=== PATIENT | female | born 1990 | race Caucasian/White ===

== ENCOUNTER 2018-10-19 13:06 | Emergency (ER) | payer OTHER ==
[~2018-10-19] VITALS: Ht 165.1 cm; Wt 68.7 kg
[2018-10-19 13:14] VITALS: Ht 165.1 cm; Wt 68.7 kg
--- NOTE | 2018-10-19 13:53 | ERD ---
ER Documentation Chief Complaint Chief Complaint sent by pmd , feeling depressed and having suicidal thoughts HPI 28-year-old female with a history of depression sent by her primary care doctor for evaluation of suicidal thoughts and worsening depression. Patient has had depression her whole life. She has been off of medications for quite some time. Recently about 1 month ago, she started having problems with her partner in the relationship. Her symptoms severely worsened at this time. She went to her primary care doctor 2 weeks ago and was prescribed Zoloft and Xanax. However she feels that her symptoms have worsened despite the medications. She is having suicidal thoughts since yesterday, feeling that she does not want to be here and thinking of ways that she could hurt herself. She has been very open about her symptoms with her father who is at the bedside at this time. She has poor appetite, is unable to sleep, and is crying almost 24 hours/day according to her dad.. ROS All systems reviewed and are negative except as per history of present illness. Medications Home Meds Reported Medications Sertraline Hcl* (Sertraline Hcl*) 50 Mg Tablet, 50 MG PO DAILY, #30 TAB 10/19/18 Alprazolam* (Alprazolam*) 0.5 Mg Tablet, 0.5 MG PO QHS PRN for ANXIETY, TAB 10/19/18 Allergies Allergies: Coded Allergies: No Known Allergy (Unverified , 10/19/18) PMhx/Soc History of Surgery: No Hx Neurological Disorder: Yes (Encephalitis) Hx Psychiatric Problems: Yes (Depression) Hx Alcohol Use: No Hx Substance Use: No Hx Tobacco Use: No FmHx Extensive psychiatric history, anxiety Family History: No diabetes Physical Exam Vitals Vital Signs Date Temp Pulse Resp B/P (MAP) Pulse Ox O2 O2 Flow FiO2 Time Delivery Rate 10/19/18 98.0 88 18 128/79 98 Room Air 14:01 (95) 10/19/18 98.3 83 18 135/84 98 13:14 (101) Physical Exam INITIAL VITAL SIGNS: Reviewed by me GENERAL: Well appearing, non toxic, speaking in full sentences. HEENT: Atraumatic, Moist mucous membranes NECK: Supple. RESPIRATORY: No respiratory distress. EXTREMITIES: No clubbing or cyanosis. No edema SKIN: Warm, dry. NEUROLOGIC: Alert and awake. No facial asymmetry. Normal speech. PSYCH: M/S: Alert and oriented Mood/Affect: Depressed, emotionally labile, crying Speech: Normal Insight: Normal Hallucinations: None SI or HI: +SI Result Diagram: 10/19/18 1429 10/19/18 1429 Results 24 hrs Laboratory Tests Test 10/19/18 13:20 10/19/18 14:16 10/19/18 14:29 Urine Color YELLOW Urine Clarity CLEAR Urine pH 6.0 Urine Specific [place] 1.011 Urine Ketones NEGATIVE mg/dL Urine Nitrite NEGATIVE mg/dL Urine Bilirubin NEGATIVE mg/dL Urine Urobilinogen NEGATIVE mg/dL Urine Leukocyte Esterase NEGATIVE Rose/ul Urine Microscopic RBC 3 /HPF Urine Microscopic WBC 1 /HPF Urine Bacteria FEW /HPF Urine Hemoglobin 1+ mg/dL Urine Glucose NEGATIVE mg/dL Urine Total Protein NEGATIVE mg/dl Urine Opiates Screen NEGATIVE Urine Barbiturates NEGATIVE Urine Amphetamines Screen NEGATIVE Urine Benzodiazepines Screen NEGATIVE Urine Cocaine Screen NEGATIVE Urine Cannabinoids NEGATIVE POC Beta HCG, Qualitative NEGATIVE White Blood Count 6.8 10^3/ul Red Blood Count 4.71 10^6/ul Hemoglobin 14.6 g/dl Hematocrit 44.0 % Mean Corpuscular Volume 93.4 fl Mean Corpuscular Hemoglobin 31.0 pg Mean Corpuscular 33.2 g/dl Hemoglobin Concent Red Cell Distribution Width 12.7 % Platelet Count 198 10^3/UL Mean Platelet Volume 10.7 fl Immature Granulocytes % 0.100 % Neutrophils % 66.3 % Lymphocytes % 24.1 % Monocytes % 5.4 % Eosinophils % 3.8 % Basophils % 0.3 % Nucleated Red Blood Cells % 0.0 /100WBC Immature Granulocytes # 0.010 10^3/ul Neutrophils # 4.5 10^3/ul Lymphocytes # 1.6 10^3/ul Monocytes # 0.4 10^3/ul Eosinophils # 0.3 10^3/ul Basophils # 0.0 10^3/ul Nucleated Red Blood Cells # 0.0 10^3/ul Sodium Level 140 mmol/L Potassium Level 4.2 mmol/L Chloride Level 105 mmol/L Carbon Dioxide Level 25 mmol/L Anion Gap 10 Blood Urea Nitrogen 19 mg/dl Creatinine 0.94 mg/dl Est Glomerular Filtrat > 60 mL/min Rate mL/min Glucose Level 98 mg/dl Calcium Level 9.8 mg/dl Total Bilirubin 0.6 mg/dl Direct Bilirubin 0.00 mg/dl Indirect Bilirubin 0.6 mg/dl Aspartate Amino 21 IU/L Transf (AST/SGOT) Alanine 19 IU/L Aminotransferase (ALT/SGPT) Alkaline Phosphatase 65 IU/L Total Protein 8.1 g/dl Albumin 4.6 g/dl Globulin 3.50 g/dl Albumin/Globulin Ratio 1.31 Salicylates Level < 1.0 mg/dl Acetaminophen Level < 10.0 ug/ml Ethyl Alcohol Level < 10.0 mg/dl Current Medications Medications Dose Sig/Lito Start Time Status Last (Trade) Ordered Route PRN Stop Time Admin Dose Reason Admin 2 mg BID PO 10/19/18 Aripiprazole 21:00 (Abilify) Procedures/MDM EMERGENT LABS AND DIAGNOSTIC STUDIES: Lab Results above were reviewed and interpreted by me. CBC: no anemia or evidence of infection CMP: No evidence of clinically significant electrolyte abnormality, acidosis, renal failure, hypoglycemia, liver disease, or biliary obstruction UA: no evidence of infection Urine drug screen: Negative Ethanol: No evidence of intoxication Salicylate and acetaminophen: No evidence of toxicity Initial Nursing notes reviewed. Previous Medical Records requested via the Electronic Health Record. EMERGENCY DEPARTMENT COURSE / MEDICAL DECISION MAKING: Based on my evaluation, it appears that the patient has had decompensation of her depression and is now having suicidal thoughts. I do believe she would benefit from psychiatric evaluation and interventions. From my standpoint the patient is medically cleared for psychiatric evaluation and if needed, inpatient psychiatric hospitalization. Tele-psychiatry has been consulted. They recommended a voluntary psychiatric hospitalization and starting Abilify, which was ordered. At time of signout, patient awaiting transfer to an inpatient psychiatric facility on a voluntary basis. Departure Diagnosis: Primary Impression: Suicidal ideation Additional Impression: Major depression Condition: Serious BREEZY COLEY MD Oct 19, 2018 13:53
[2018-10-19] MEDS ORDERED: SERT50TA6 PO (15:04)
[2018-10-19] MEDS ORDERED: ALPR0.5T6 PO (15:04)
--- NOTE | 2018-10-19 17:01 | PSY ---
Date/Time of Note Date/Time of Note DATE: 10/19/18 TIME: 16:43 Psychiatric Subjective Eval Consent Pt consented to telemedicine: Yes Subjective Evaluation Patient location: emergency Chief Complaint: sent by pmd , feeling depressed and having suicidal thoughts History of present illness 28 yo single female BIB her father due to increasingly severe depression and active SI wtih a plan to cut her wrists in a bathtub. Pt says her psychiatrist started her on zoloft and xanax but she has been progressively worse, depressed, hopeless, tearful, fatigued and drowsy Pt is tearful. She reprots numerous stressors. No psychosis. No HI. Past psychiatric history no prior inpt Hospitalization: no Family History denies Medical history Problems Medical Problems: (1) Suicidal ideation Status: Acute Allergies: Coded Allergies: No Known Allergy (Unverified , 10/19/18) Substance Abuse Substance use: No known substance abuse Social History Marital status: single Occupation/Long-Term: unemployed Psychiatric Objective Eval Mental Status Examination: Appearance: Groomed Eye Contact: Good Psychomotor Activity: Normal Behavior: Cooperative Speech: Clear AFFECT: Appropriate, Depressed Mood: Depressed Though Process: Linear Thought Content: Normal Suicidal: Yes Homicidal: No Orientation: x4 Cognition: Alert Insight: Intact Judgement: Intact Laboratory Results Laboratory Tests Test 10/19/18 13:20 10/19/18 14:16 10/19/18 14:29 Urine Color YELLOW Urine Clarity CLEAR Urine pH 6.0 Urine Specific [place] 1.011 Urine Ketones NEGATIVE mg/dL Urine Nitrite NEGATIVE mg/dL Urine Bilirubin NEGATIVE mg/dL Urine Urobilinogen NEGATIVE mg/dL Urine Leukocyte Esterase NEGATIVE Rose/ul Urine Microscopic RBC 3 /HPF Urine Microscopic WBC 1 /HPF Urine Bacteria FEW /HPF Urine Hemoglobin 1+ mg/dL Urine Glucose NEGATIVE mg/dL Urine Total Protein NEGATIVE mg/dl Urine Opiates Screen NEGATIVE Urine Barbiturates NEGATIVE Urine Amphetamines Screen NEGATIVE Urine Benzodiazepines Screen NEGATIVE Urine Cocaine Screen NEGATIVE Urine Cannabinoids NEGATIVE POC Beta HCG, Qualitative NEGATIVE White Blood Count 6.8 10^3/ul Red Blood Count 4.71 10^6/ul Hemoglobin 14.6 g/dl Hematocrit 44.0 % Mean Corpuscular Volume 93.4 fl Mean Corpuscular Hemoglobin 31.0 pg Mean Corpuscular 33.2 g/dl Hemoglobin Concent Red Cell Distribution Width 12.7 % Platelet Count 198 10^3/UL Mean Platelet Volume 10.7 fl Immature Granulocytes % 0.100 % Neutrophils % 66.3 % Lymphocytes % 24.1 % Monocytes % 5.4 % Eosinophils % 3.8 % Basophils % 0.3 % Nucleated Red Blood Cells % 0.0 /100WBC Immature Granulocytes # 0.010 10^3/ul Neutrophils # 4.5 10^3/ul Lymphocytes # 1.6 10^3/ul Monocytes # 0.4 10^3/ul Eosinophils # 0.3 10^3/ul Basophils # 0.0 10^3/ul Nucleated Red Blood Cells # 0.0 10^3/ul Sodium Level 140 mmol/L Potassium Level 4.2 mmol/L Chloride Level 105 mmol/L Carbon Dioxide Level 25 mmol/L Anion Gap 10 Blood Urea Nitrogen 19 mg/dl Creatinine 0.94 mg/dl Est Glomerular Filtrat > 60 mL/min Rate mL/min Glucose Level 98 mg/dl Calcium Level 9.8 mg/dl Total Bilirubin 0.6 mg/dl Direct Bilirubin 0.00 mg/dl Indirect Bilirubin 0.6 mg/dl Aspartate Amino 21 IU/L Transf (AST/SGOT) Alanine 19 IU/L Aminotransferase (ALT/SGPT) Alkaline Phosphatase 65 IU/L Total Protein 8.1 g/dl Albumin 4.6 g/dl Globulin 3.50 g/dl Albumin/Globulin Ratio 1.31 Salicylates Level < 1.0 mg/dl Acetaminophen Level < 10.0 ug/ml Ethyl Alcohol Level < 10.0 mg/dl Assessment and Plan Assessment/Diagnosis Diagnosis MAJOR DEPRESSIVE DISORDER SINGLE EPISODE SEVERE W/O PSYCHOSIS Recommendation/Plan Medication Management D/C ZOLOFT. ATIVAN 1 MG PO RPN Q 8 HRS SEVERE ANXIETY. CONSIDER ABILIFY 2 MG POQD. CONSIDER PRISTIQ 50 MG PO QD Discharge Disposition: Psychiatric inpatient Legal Status: Voluntary GAURI MOORE MD Oct 19, 2018 16:59
[2018-10-19 20:29] VITALS: BP 115/81; PULSE 85; RESP 19
--- NOTE | 2018-10-19 20:37 | PSY ---
Date/Time of Note Date/Time of Note DATE: 10/19/18 TIME: 20:37 Psychiatric Subjective Eval Consent Pt consented to telemedicine: Yes Subjective Evaluation Patient location: emergency Chief Complaint: sent by pmd , feeling depressed and having suicidal thoughts History of present illness Spoke to RN who said patient subsequently denied suicidal thoughts and had a follow-up plan and so was discharged from the ED. Hospitalization: Suicidal Attempt(s) Medical history Problems Medical Problems: (1) Major depression Status: Acute (2) Suicidal ideation Status: Acute Allergies: Coded Allergies: No Known Allergy (Unverified , 10/19/18) Social History Marital status: single DPA/Conservatorship: No Occupation/Nursing Home: unemployed Psychiatric Objective Eval Mental Status Examination: Laboratory Results Laboratory Tests Test 10/19/18 13:20 10/19/18 14:16 10/19/18 14:29 Urine Color YELLOW Urine Clarity CLEAR Urine pH 6.0 Urine Specific [place] 1.011 Urine Ketones NEGATIVE mg/dL Urine Nitrite NEGATIVE mg/dL Urine Bilirubin NEGATIVE mg/dL Urine Urobilinogen NEGATIVE mg/dL Urine Leukocyte Esterase NEGATIVE Rose/ul Urine Microscopic RBC 3 /HPF Urine Microscopic WBC 1 /HPF Urine Bacteria FEW /HPF Urine Hemoglobin 1+ mg/dL Urine Glucose NEGATIVE mg/dL Urine Total Protein NEGATIVE mg/dl Urine Opiates Screen NEGATIVE Urine Barbiturates NEGATIVE Urine Amphetamines Screen NEGATIVE Urine Benzodiazepines Screen NEGATIVE Urine Cocaine Screen NEGATIVE Urine Cannabinoids NEGATIVE POC Beta HCG, Qualitative NEGATIVE White Blood Count 6.8 10^3/ul Red Blood Count 4.71 10^6/ul Hemoglobin 14.6 g/dl Hematocrit 44.0 % Mean Corpuscular Volume 93.4 fl Mean Corpuscular Hemoglobin 31.0 pg Mean Corpuscular 33.2 g/dl Hemoglobin Concent Red Cell Distribution Width 12.7 % Platelet Count 198 10^3/UL Mean Platelet Volume 10.7 fl Immature Granulocytes % 0.100 % Neutrophils % 66.3 % Lymphocytes % 24.1 % Monocytes % 5.4 % Eosinophils % 3.8 % Basophils % 0.3 % Nucleated Red Blood Cells % 0.0 /100WBC Immature Granulocytes # 0.010 10^3/ul Neutrophils # 4.5 10^3/ul Lymphocytes # 1.6 10^3/ul Monocytes # 0.4 10^3/ul Eosinophils # 0.3 10^3/ul Basophils # 0.0 10^3/ul Nucleated Red Blood Cells # 0.0 10^3/ul Sodium Level 140 mmol/L Potassium Level 4.2 mmol/L Chloride Level 105 mmol/L Carbon Dioxide Level 25 mmol/L Anion Gap 10 Blood Urea Nitrogen 19 mg/dl Creatinine 0.94 mg/dl Est Glomerular Filtrat > 60 mL/min Rate mL/min Glucose Level 98 mg/dl Calcium Level 9.8 mg/dl Total Bilirubin 0.6 mg/dl Direct Bilirubin 0.00 mg/dl Indirect Bilirubin 0.6 mg/dl Aspartate Amino 21 IU/L Transf (AST/SGOT) Alanine 19 IU/L Aminotransferase (ALT/SGPT) Alkaline Phosphatase 65 IU/L Total Protein 8.1 g/dl Albumin 4.6 g/dl Globulin 3.50 g/dl Albumin/Globulin Ratio 1.31 Salicylates Level < 1.0 mg/dl Acetaminophen Level < 10.0 ug/ml Ethyl Alcohol Level < 10.0 mg/dl Assessment and Plan Assessment/Diagnosis Diagnosis Reconsult as needed. Patient D/C'd from the ED. Recommendation/Plan Discharge Disposition: Community (home) Legal Status: Voluntary ELMIRA GIL MD Oct 19, 2018 20:37
[2018-10-19] MEDS ORDERED: ARIPIPRAZOLE 2 MG TAB PO SCH (21:00)
== END 2018-10-19 20:33 | disposition home or self-care (01) ==
LOC: E/R 13:06
DX: F32.9 Major depressive disorder, single episode, unspecified (principal); R40.2142 Coma scale, eyes open, spontaneous, at arrival to emergency department; R40.2362 Coma scale, best motor response, obeys commands, at arrival to emergency department; R40.2252 Coma scale, best verbal response, oriented, at arrival to emergency department
CPT/HCPCS: 80053; 80307; 81001; 81025; 85025; Z7502; 99285